=== PATIENT | female | born 1980 | race African-American/Black ===

== ENCOUNTER 2021-03-29 16:28 | Emergency (ER) | payer MEDICAID, OTHER ==
[~2021-03-29] VITALS: Ht 154.9 cm; Wt 74.0 kg
[2021-03-29 17:28] LABS: BASOPHILS % 0.4 % (0.0-2.0); EOSINOPHILS % 1.6 % (0.0-5.0); HEMATOCRIT. 38.7 % (36.0-48.0); HEMOGLOBIN. 12.4 g/dL (12.0-16.0); LYMPHOCYTES % 12.3 % (20.0-50.0); MEAN CORPUSCULAR HEMOGLOBIN 23.6 pg (28.0-32.0); MEAN CORPUSCULAR VOLUME 73.8 fL (81.0-99.0); MEAN PLATELET VOLUME 8.3 fl (7.4-10.4); MONOCYTES % 7.8 % (2.0-8.0); NEUTROPHILS % 77.9 % (40.0-76.0); PLATELET 291 x1000/uL (130-400); RED BLOOD CELL COUNT 5.24 mill/uL (4.2-5.4); RED CELL DISTRIBUTION WIDTH 16.9 % (11.6-14.6)
[2021-03-29 17:33] LABS: CHLORIDE 104 mEq/L (98-107)
[2021-03-29 17:58] LABS: B-HCG QUANTITATIVE 38722 mIU/mL (<3)
[2021-03-29 19:50] VITALS: BP 108/70
== END 2021-03-29 20:39 | disposition home or self-care (01) ==
LOC: ER 16:28
DX: O03.4 Incomplete spontaneous abortion without complication (principal); Z3A.08 8 weeks gestation of pregnancy; D64.9 Anemia, unspecified
CPT/HCPCS: 36415; 76801; 80053; 84702; 85025; 86850; 86900; 88309; 93005; 99285

== ENCOUNTER 2021-04-03 12:07 | Day surgery (SDC) | payer OTHER ==
[~2021-04-03] VITALS: Ht 154.9 cm; Wt 76.0 kg
[2021-04-03] MEDS ORDERED: SODIUM CHLORIDE 0.9% 1,000 ML IV ONE ×2 (13:15→17:00)
[2021-04-03 14:31] LABS: BASOPHILS % 0.9 % (0.0-2.0); EOSINOPHILS % 4.9 % (0.0-5.0); HEMATOCRIT. 36.4 % (36.0-48.0); HEMOGLOBIN. 11.5 g/dL (12.0-16.0); MEAN CORPUSCULAR HEMOGLOBIN 23.7 pg (28.0-32.0); MEAN CORPUSCULAR VOLUME 74.7 fL (81.0-99.0); MEAN PLATELET VOLUME 8.5 fl (7.4-10.4); MONOCYTES % 6.6 % (2.0-8.0); NEUTROPHILS % 63.6 % (40.0-76.0); PLATELET 328 x1000/uL (130-400); RED BLOOD CELL COUNT 4.87 mill/uL (4.2-5.4); RED CELL DISTRIBUTION WIDTH 16.9 % (11.6-14.6)
[2021-04-03 14:35] LABS: CHLORIDE 106 mEq/L (98-107)
[2021-04-03 14:55] LABS: CLARITY URINE CLEAR (CLEAR); COLOR URINE YELLOW (YELLOW); KETONES URINE NEGATIVE (NEGATIVE); LEUKOCYTE ESTERASE URINE 2+ (NEGATIVE); NITRITE URINE NEGATIVE (NEGATIVE); OCCULT BLOOD URINE 3+ (NEGATIVE); PH URINE 7.5 (4.5-8.0); PROTEIN URINE TRACE (NEGATIVE); SPECIFIC GRAVITY URINE 1.008 (1.005-1.030)
[2021-04-03] MEDS ORDERED: CEFAZOLIN 1000MG PREMIX 50 ML IV ONE (15:30)
[2021-04-03 15:45] VITALS: BP 117/75
[2021-04-03] MEDS ORDERED: KCL 10MEQ/50ML PREMIX 50 ML IV ONE (15:45)
[2021-04-03] MEDS ORDERED: METOCLOPRAMIDE HCL 10MG/2ML VIAL ONE (16:34)
[2021-04-03] MEDS ORDERED: SUCCINYLCHOLINE CHLORIDE 200MG/10ML IV ONE (16:34)
[2021-04-03] MEDS ORDERED: PROPOFOL 200MG/20ML VIAL IV ONE (16:34)
[2021-04-03] MEDS ORDERED: ONDANSETRON HCL 4MG/2ML INJ ONE (16:34)
[2021-04-03] MEDS ORDERED: FENTANYL CITRATE/PF 50MCG/ML 2ML VIAL ONE (16:34)
[2021-04-03] MEDS ORDERED: MIDAZOLAM HCL 2 MG/2 ML VIAL ONE (16:34)
[2021-04-03] MEDS ORDERED: GLYCOPYRROLATE 0.2 MG/ML 2ML VIAL ONE (16:34)
[2021-04-03] MEDS ORDERED: PROPOFOL 10MG/ML 100ML 100 ML IV ONE (16:36)
[2021-04-03] MEDS ORDERED: MEPERIDINE HCL/PF 25MG/ML CPJ IV PRN ×2 (17:00)
[2021-04-03] MEDS ORDERED: ONDANSETRON HCL 4MG/2ML INJ IV PRN ×2 (17:00→17:15)
[2021-04-03] MEDS ORDERED: HYDROMORPHONE HCL/PF 2MG/ML CPJ IV PRN (17:00)
[2021-04-03] MEDS ORDERED: MORPHINE SULFATE 2 MG/ML CPJ (NOT FOR IM USE) IV PRN (17:00)
[2021-04-03] MEDS ORDERED: CEFAZOLIN SODIUM 1000MG/VIAL ONE (17:08)
[2021-04-03] MEDS ORDERED: ACETAMINOPHEN 325MG TABLET PO PRN (17:15)
[2021-04-03] MEDS ORDERED: MISOPROSTOL 200MCG TABLET PO NR (17:30)
[2021-04-03] MEDS ORDERED: KETOROLAC 60MG/2ML VIAL IM NR (17:30)
[2021-04-03] MEDS ORDERED: DEXT 5%/0.45% NACL KCL 20MEQ/L 1,000 ML IV SCH (17:30)
== END 2021-04-03 22:45 | disposition home or self-care (01) ==
LOC: ER 12:07 → OR 16:30 → ENRESERV 19:57 → OR 22:45 → CANBEDREQ 04-04 14:28
PROVIDERS: ATTEND Specialist
DX: O03.4 Incomplete spontaneous abortion without complication (principal); N93.9 Abnormal uterine and vaginal bleeding, unspecified; D64.9 Anemia, unspecified; Z79.899 Other long term (current) drug therapy; Z98.890 Other specified postprocedural states; Z82.49 Family history of ischemic heart disease and other diseases of the circulatory system; Z83.3 Family history of diabetes mellitus; Z72.89 Other problems related to lifestyle; Z3A.14 14 weeks gestation of pregnancy; Z20.822 Contact with and (suspected) exposure to COVID-19
CPT/HCPCS: 36415; 59812; 76830; 76856; 80053; 81003; 84702; 85025; 86850; 86900; 86901; 87426; 88305; 99291; J0690; J2250; J2405; J2704; J2765; J3010; J7030; J0330; J3480; J3490